=== PATIENT | female | born 1940 | race Caucasian/White ===

== ENCOUNTER 2020-12-15 08:28 | Inpatient (IN) ==
--- NOTE | 2020-11-27 11:52 | PAT Medication Instructions ---
Medication Instructions Date of Service November 27, 2020 Home Medications acetaminophen [Tylenol] 650 mg PO BID PRN aspirin [Aspir-81] 81 mg PO QAM atorvastatin 20 mg PO QPM cholecalciferol (vitamin D3) [Vitamin D3] 10 mcg PO QPM hydrocodone-acetaminophen 1 tab PO Q8H PRN latanoprost (PF) 1 drp OPHTHALMIC (EYE) HS levothyroxine 88 mcg PO QAM losartan 25 mg PO QAM olmesartan 40 mg PO QAM omeprazole 40 mg PO QAM vitamins A,C,Z-klio-pefvge [PreserVision AREDS] 1 cap PO BID ASK your prescriber and surgeon aspirin [Aspir-81] 81 mg PO QAM STOP taking 2 weeks before surgery (or as soon as possible if surgery is within 2 weeks) vitamins A,C,X-inbw-npmaur [PreserVision AREDS] 1 cap PO BID DO NOT take the morning of surgery losartan 25 mg PO QAM olmesartan 40 mg PO QAM Take morning of surgery With a small sip of water, OTHERWISE NOTHING TO EAT OR DRINK AFTER MIDNIGHT: acetaminophen [Tylenol] 650 mg PO BID PRN (okay to take up to 4 hours prior to surgery if needed) hydrocodone-acetaminophen 1 tab PO Q8H PRN(okay to take up to 4 hours prior to surgery if needed) levothyroxine 88 mcg PO QAM omeprazole 40 mg PO QAM Take evening before surgery acetaminophen [Tylenol] 650 mg PO BID PRN (if needed) atorvastatin 20 mg PO QPM cholecalciferol (vitamin D3) [Vitamin D3] 10 mcg PO QPM hydrocodone-acetaminophen 1 tab PO Q8H PRN (if needed) latanoprost (PF) 1 drp OPHTHALMIC (EYE) HS Other Notes If you have any questions please call us at [phone] or [phone] or [phone] or [phone]
--- NOTE | 2020-11-30 12:54 | Anesthesiology Consultation ---
Date of Service November 30, 2020 Assessment & Plan (1) Encounter for pre-operative examination: - Per assessment on 11/30: Travel screen- Lives in [facility]. Travel to [facility] for doctor appts. Uses PPE. No known COVID-19 positive contacts or current COVID-19 related symptoms. Surgeon arranging preop COVID testing (scheduled 12/08; [facility]). Awaiting results. - ASA instructions per surgeon/prescriber - Possible difficult intubation d/t anatomy (hx L5-S1 decompression/fusion: 1 11/10/11: Atraumatic intubation, ETT 7.0 at [facility]) Chart Review Chart Review: Acceptable Risk for Surgery (pending surgeon-ordered PCP gavino jose) and Patient seen in Pre Admission Testing Teaching & Discussion Pre-Anesthesia Teaching/Discussion Notes: Instructed NPO after midnight before surgery,except medications with 15 cc of water. Medication instructions provided according to the PAT guidelines. History Surgery Operation Date: 12/15/20 07:45 Proposed Procedures p L4-L5 Decompression Fusion, L5-S1 Hardware Removal, Spinal Cord Monitoring - Steve Moralez DO Height/Weight Height: 5 ft 2 in Weight: 64.1 kg Allergies Allergy/AdvReac Type Severity Reaction Status Date / Time amoxicillin Allergy Unknown Hives Verified 11/27/20 15:03 oxycodone [From Percocet] Allergy Unknown Hives Verified 11/27/20 15:03 Medications Home Medications Medication Instructions Recorded Confirmed Last Taken acetaminophen [Tylenol] 650 mg PO BID PRN 11/15/20 11/15/20 Unknown aspirin [Aspir-81] 81 mg PO QAM 11/15/20 11/15/20 Unknown atorvastatin 20 mg PO QPM 11/15/20 11/15/20 Unknown cholecalciferol (vitamin D3) 10 mcg PO QPM 11/15/20 11/15/20 Unknown [Vitamin D3] hydrocodone-acetaminophen 1 tab PO Q8H PRN 11/15/20 11/15/20 Unknown latanoprost (PF) 1 drp OPHTHALMIC (EYE) HS 11/15/20 11/15/20 Unknown levothyroxine 88 mcg PO QAM 11/15/20 11/15/20 Unknown losartan 25 mg PO QAM 11/15/20 11/15/20 Unknown omeprazole 40 mg PO QAM 11/15/20 11/15/20 Unknown vitamins A,C,S-kdgq-gnwzfz 1 cap PO BID 11/15/20 11/15/20 Unknown [PreserVision AREDS] Past Medical History Medical History Aortic stenosis Mild aortic stenosis (TRUDY 1.1cm2, MG 12-13.4mmhg) per 11/2019 echo Chronic back pain Chronic kidney disease Stage III, under surveillance by PCP Chronic obstructive pulmonary disease GERD (gastroesophageal reflux disease) Glaucoma Hiatal hernia Hyperlipidemia Hypertension Hypothyroidism Hyperactivity 20 years ago > hypothyroidism s/p radiation Macular degeneration "One eye" Osteoarthritis Prediabetes diet controlled, PCP monitoring Exercise / Class Metabolic Activity III < 4 Walking/Shop/Light housework Past Family History Family History Sister Family history of diabetes mellitus Sister Family history of diabetes mellitus Mother Family history of diabetes mellitus Brother Family history of diabetes mellitus Past Surgical History Surgical History Fusion of spine L5-S1 decompression/fusion: 09/09/12: Atraumatic intubation, ETT 7.0 at [facility] History of adenoidectomy History of appendectomy History of cholecystectomy History of colonoscopy History of esophagogastroduodenoscopy (EGD) History of tonsillectomy Past Anesthesia History No Family Hx of Anesthesia Complications and Other (severe pain with remote back surgery during what sounds like A-line placement (2011; [facility])) History of PONV No Hx of PONV and Hx of Motion Sickness Social History Smoking Status: Current every day smoker Smoking cigarettes per day: 1 PDD (previously heavier use at 2 PPD) Do You Dip or Chew Tobacco: No Hx Alcohol Use: No Hx Substance Use: No Review of Systems Patient denies chest pain, shortness of breath, fever, chills, reflux, cough, wheezing, palpitations. Physical Exam Vital Signs VITALS BP 147/78 P 75 TEMP 98.3 SP02 96%RA RESP 16 PHYSICAL Full neck and c-spine range of motion. Full TMJ range of motion. TMD 2 finger breaths (small chin) Mallampati Score 4 (small oral opening) Dentition: full dentures upper/lower Lungs: clear throughout to auscultation Cardiac: regular rate and rhythm, II/ systolic murmur Spine: normal Carotid arteries: negative bruit Extremities: no edema Testing Laboratory Results 11/30/20 13:44 11/30/20 13:44 PT 10.3 Seconds (9.0-12.0) 11/30/20 13:44 INR 1.0 (0.9-1.1) 11/30/20 13:44 APTT 23.5 Seconds (21.0-31.0) 11/30/20 13:44 Urine Color Yellow 11/30/20 13:44 Urine Appearance Clear (Clear) 11/30/20 13:44 Urine pH 5.0 (4.5-7.5) 11/30/20 13:44 Ur Specific Brady 1.011 (1.000-1.030) 11/30/20 13:44 Urine Protein Negative (Negative) 11/30/20 13:44 Urine Glucose (UA) Negative (Negative) 11/30/20 13:44 Urine Ketones Negative (Negative) 11/30/20 13:44 Urine Nitrite Negative (Negative) 11/30/20 13:44 Ur Leukocyte Esterase Negative (Negative) 11/30/20 13:44 Blood Type B Positive 11/30/20 13:44 Antibody Screen NEGATIVE 11/30/20 13:44 Electrocardiogram Date: 11/30/20 Findings: + NSR @ (75) Chest X-Ray Date: 11/30/20 FINDINGS: The lungs are clear. The heart is normal in size. No pleural effusions. No pneumothorax. Calcifications at the aortic knob are again noted. Prior cholecystectomy. IMPRESSION: No acute process. Echocardiogram Date: 11/08/19 LVEF 65%. No RWMA. Mild aortic stenosis (TRUDY 1.1cm2, MG 12-13.4mmhg). Mild MR.
--- NOTE | 2020-11-30 14:23 | XRay Report ---
XR chest Pre-admission PA/Lat HISTORY: Preop. COMPARISON: Chest 08/24/2012. FINDINGS: The lungs are clear. The heart is normal in size. No pleural effusions. No pneumothorax. Ca lcifications at the aortic knob are again noted. Prior cholecystectomy. IMPRESSION: No acute process. ACT 112: Negative or not required by law. Electronically signed by: Connor Valentin M.D. 11/30/2020 2:22 PM
[2020-11-30 14:59] LABS: Appearance Urine Clear (Clear); Bilirubin Urine Negative (Negative); Blood Urine Negative (Negative); Color Urine Yellow; Glucose Urine UA Negative (Negative); Ketones Urine Negative (Negative); Leukocyte Esterase Urine Negative (Negative); Nitrite Urine Negative (Negative); Protein Urine Negative (Negative); Specific Gravity Urine 1.011 (1.000-1.030); Urobilinogen Urine Negative (Negative)
[2020-11-30 15:03] LABS: Basophils # (auto) 0.02 K/uL (0-0.2); Basophils % (auto) 0.2 %; Eosinophils # (auto) 0.16 K/uL (0-0.5); Eosinophils % (auto) 1.8 %; Hematocrit (blood only) 40.4 % (37-47); Immature Granulocytes # (auto) 0.02 K/uL (0.00-0.02); Immature Granulocytes % (auto) 0.2 %; Lymphocytes # (auto) 2.68 K/uL (1.2-3.4); Lymphocytes % (auto) 29.7 %; Mean Corpuscular Hgb Conc 34.7 g/dL (32-36); Mean Corpuscular Volume 89.4 fL (80-100); Mean Platelet Volume 9.5 fL (7.4-10.4); Monocytes % (auto) 3.3 %; Neutrophils # (auto) 5.83 K/uL (1.4-6.5); Neutrophils % (auto) 64.8 %; Platelet Count 262 K/uL (130-400); RDW Coefficient of Variation 13.4 % (11.5-14.5); RDW Standard Deviation 44.3 fL (36.4-46.3); Red Blood Count 4.52 M/uL (4.2-5.4); White Blood Count 9.01 K/uL (4.8-10.8)
[2020-11-30 15:04] LABS: BUN Creatinine Ratio 11.3 (10-20); Calcium 9.1 mg/dl (8.5-10.1); Creatinine Clr Calc Pharmacy 39.3 ml/min; Est GFR (Non-African American) 54.4; Potassium 3.9 mmol/L (3.5-5.1)
[2020-11-30 15:11] LABS: Partial Thromboplastin Ratio 0.9; Partial Thromboplastin Time 23.5 Seconds (21.0-31.0); Prothrombin Time 10.3 Seconds (9.0-12.0)
--- NOTE | 2020-11-30 16:57 | Electrocardiogram Report ---
Test Reason : Blood Pressure : / mmHG Vent. Rate : 075 BPM Atrial Rate : 075 BPM P-R Int : 178 ms QRS Dur : 098 ms QT Int : 394 ms P-R-T Axes : 078 079 069 degrees QTc Int : 439 ms Normal sinus rhythm Normal ECG When compared with ECG of 24-AUG-2012 14:20, No significant change was found Confirmed by George Escamilla ([id number]) on 11/30/2020 4:56:43 PM Referred By: Steve Moralez Confirmed By:Deandre Escamilla
[~2020-12-15 08:28] MED LIST: CLINDAMYCIN 600 MG/54 ML BAG IV SCH; GABAPENTIN 300 MG CAP PO SCH; LR 15ML/HR IV SCH
[2020-12-15] MEDS ORDERED: NEOSTIGMINE METHYLSULFATE 1 MG/ML 10ML VIAL ONE (09:12)
[2020-12-15] MEDS ORDERED: LIDOCAINE HCL 2% 2 ML VIAL/AMP(20MG/ML) INFIL ONE (09:12)
[2020-12-15] MEDS ORDERED: fentaNYL citrate 100 MCG/2 ML VIAL ONE (09:12)
[2020-12-15] MEDS ORDERED: GLYCOPYRROLATE 0.2 MG/ML VIAL ONE (09:12)
[2020-12-15] MEDS ORDERED: PROPOFOL IV EMULSION 10 MG/ML 20 ML VIAL IV ONE (09:12)
[2020-12-15] MEDS ORDERED: ONDANSETRON INJ 2 MG/ML 2 ML VIAL ONE (09:12)
[2020-12-15] MEDS ORDERED: DEXAMETHASONE SOD INJ 4 MG/ML VIAL ONE (09:12)
--- NOTE | 2020-12-15 09:18 | History & Physical Bridge Note ---
Date of Service December 15, 2020 History & Physical Bridge Note I have examined the patient, reviewed the History & Physical and in the interval since the performance of the History & Physical I have noted the following changes of clinical significance: no changes noted
--- NOTE | 2020-12-15 09:19 | History & Physical Report ---
Date of Service December 15, 2020 Assessment & Plan (1) Neurogenic claudication due to lumbar spinal stenosis: Admission and Anticipated Discharge Date Admission Date: L4-L5 decompression fusion, L5-S1 hardware removal History of Present Illness Chief Complaint: Back and leg pain Primary Care Provider: Chandrika Gu This is an 78-year-old female that has some chronic persistent back and leg pain after failing course of nonoperative care is here for surgical invention. Allergies Allergy/AdvReac Type Severity Reaction Status Date / Time amoxicillin Allergy Unknown Hives Verified 11/27/20 15:03 oxycodone [From Percocet] Allergy Unknown Hives Verified 11/27/20 15:03 Home Medications Medication Instructions Recorded Confirmed Type acetaminophen [Tylenol] 650 mg PO BID PRN 11/15/20 11/15/20 History aspirin [Aspir-81] 81 mg PO QAM 11/15/20 11/15/20 History atorvastatin 20 mg PO QPM 11/15/20 11/15/20 History cholecalciferol (vitamin D3) 10 mcg PO QPM 11/15/20 11/15/20 History [Vitamin D3] hydrocodone-acetaminophen 1 tab PO Q8H PRN 11/15/20 11/15/20 History latanoprost (PF) 1 drp OPHTHALMIC (EYE) HS 11/15/20 11/15/20 History levothyroxine 88 mcg PO QAM 11/15/20 11/15/20 History losartan 25 mg PO QAM 11/15/20 11/15/20 History omeprazole 40 mg PO QAM 11/15/20 11/15/20 History vitamins A,C,W-fqqn-eavcto 1 cap PO BID 11/15/20 11/15/20 History [PreserVision AREDS] Past Med/Surg History Medical History Aortic stenosis Mild aortic stenosis (TRUDY 1.1cm2, MG 12-13.4mmhg) per 11/2019 echo Chronic back pain Chronic kidney disease Stage III, under surveillance by PCP Chronic obstructive pulmonary disease GERD (gastroesophageal reflux disease) Glaucoma Hiatal hernia Hyperlipidemia Hypertension Hypothyroidism Hyperactivity 20 years ago > hypothyroidism s/p radiation Macular degeneration "One eye" Osteoarthritis Prediabetes diet controlled, PCP monitoring Surgical History Fusion of spine L5-S1 decompression/fusion: 09/09/12: Atraumatic intubation, ETT 7.0 at [facility] History of adenoidectomy History of appendectomy History of cholecystectomy History of colonoscopy History of esophagogastroduodenoscopy (EGD) History of tonsillectomy Family History Sister Family history of diabetes mellitus Sister Family history of diabetes mellitus Mother Family history of diabetes mellitus Brother Family history of diabetes mellitus Social History Smoking Status: Current every day smoker Cigarettes Per Day: 1 PDD (previously heavier use at 2 PPD); Second Hand Exposure: No; Do You Dip or Chew Tobacco: No; Hx Alcohol Use: No Hx Substance Use: No Preferred Language: Turkmen Communication Ability: Effective Right Of Way Agent Required: No Beliefs That Will Affect Care: None Current Living Situation: Alone Other Information That Helps Us Care for You: No Feels Safe at Home: Yes Safety Concerns: Feels Safe At This Time Assistive Devices: Cane, Denture - Upper, Denture - Lower and Glasses Assistive Devices Comment: CANE PRN Physical Exam Physical Exam: Patient is alert and oriented Heart regular rhythm Lungs clear to auscultation
[2020-12-15] MEDS ORDERED: BUPIVACAINE/EPINEPHRINE 0.5% MPF 1:200,000 30 ML VIAL ONE (09:45)
[2020-12-15] MEDS ORDERED: BACITRACIN INJ 50,000 UNIT VIAL ONE (09:46)
[2020-12-15] MEDS ORDERED: ONDANSETRON INJ 2 MG/ML 2 ML VIAL IV PRN ×2 (09:53→13:11)
[2020-12-15] MEDS ORDERED: ePHEDrine sulfate 50 MG/ML AMP IV PRN (09:53)
[2020-12-15] MEDS ORDERED: ATROPINE SULFATE 0.1 MG/ML 10ML SYR IV PRN (09:53)
[2020-12-15] MEDS ORDERED: HYDROmorphone INJ 2 MG/ML SYR/VIAL IV PRN (09:53)
[2020-12-15] MEDS ORDERED: PHENYLEPHRINE 100MCG/ML 5ML SYR ONE (11:13)
[2020-12-15] MEDS ORDERED: FLOSEAL HEMOSTATIC MATRIX 10ML TOP ONE (11:44)
--- NOTE | 2020-12-15 11:48 | Operative Report ---
Post Operative Report Pre & Post Diagnosis Operation Date: 12/15/20 10:05 Pre-Op Diagnosis: Spinal Stenosis, Lumbar Region with Neurogenic Claudication Post-Op Diagnosis: Spinal Stenosis, Lumbar Region with Neurogenic Claudication I identified the patient and participated in the time-out.: Yes Procedure Operation Date: 12/15/20 10:05 Actual Procedures #1 Removal of posterior instrumentation L5-S1 peer #2 exploration of fusion L5- S1 peer #3 lumbar decompression with bilateral medial facetectomies and foraminotomies L3-4 and L4-5. #4 posterior spinal fusion L4-5 per #5 placement of posterior instrumentation L4-5 L5-S1 using meta Crea. #6 interbody fusion L4-L5. #7 placement peek cage 10 x 22 mm at L4-5. #8 placement of locally harvested morselized autograft in the posterior gutters. #9 placement infuse collagen sponge, master graft in the posterior lateral gutters and I factor in the interbody space. Surgeon Steve Moralez, Content Producer Emeka Rashid Estimated Blood Loss 100 Findings Consistent with Post-Op Diagnosis Specimens None Indications This is an 80-year-old female well-known to me the presents with above-mentioned diagnosis after failing course of nonoperative care is here for surgical invention. Description of Procedure Patient was met with identified informed consent obtained. Patient was then taken to the operative suite underwent an patient placed in a prone position the [place] table top Luisito frame. All bony prominences well-padded eyes inspected to ensure no external pressure placed upon the. This point the lumbar spine is prepped and draped in a sterile fashion. Sharp dissection with assistance of Bovie cautery was performed down to and exposing the lamina and transverse processes of L4 and the instrumentation at L5 and S1 levels bilaterally. I then proceeded to move the hardware at L5-S1 bilaterally explored the fusion mass noting it to be mature. Then performed a complete laminectomy of L4 partial negative L3 including bilateral medial facetectomies and foraminotomies addressing severe spinal stenosis. Pedicle screws were then placed in L4 and L5 and S1 levels bilaterally with assistance of fluoroscopy and by way of a transforaminal approach on the right a complete discectomy was performed endplates curetted to subcortical being bone and a 10 x 22 mm peek cage filled with I factor bone graft tapped in position. The rods were then placed locked in position bilaterally. The transverse processes of L4-L5 were then burred to subcortical any bone. Infuse collagen sponge master graft local autograft was placed in the posterior gutters. 15 round HÉCTOR drain inserted. The incision was then closed with 1 Vicryl the fascia 2-0 Vicryl subcutaneously and 4 Monocryl for final skin closure. Steri-Strip sterile dressings placed. Patient will continue to PACU stable condition. Please note spinal cord monitoring was utilized at the procedure no changes noted. Lastly Emeka Rashid was present at the entire surgery involved the patient positioning complex portions of the surgery and final skin closure. I attest to the content of the Intraoperative Record and any orders documented therein. Any exceptions are noted below.
--- NOTE | 2020-12-15 12:10 | Fluoroscopy Report ---
FL lumbar spine 2-3V CLINICAL HISTORY: L4-L5 DECOMPRESSION AND FUSION L5-S1 HW REMOVAL COMPARISON STUDY: None. FLUOROSCOPY TIME: 11 seconds. FINDINGS: 2 fluoroscopic spot images of the lumbar spine demonstrate posterior decompression and fusi on from L4 through S1 with pedicle screws and rods. The hardware appears intact. IMPRESSION: Fluoroscopy provided for posterior decompression and fusion within the lower lumbar spine . ACT 112: Negative or not required by law. Electronically signed by: Connor Valentin M.D. 12/15/2020 12:09 PM
[2020-12-15] MEDS: fentaNYL citrate 100 MCG/2 ML VIAL IV PRN ×2 (12:32→12:44)
[2020-12-15] MEDS ORDERED: HYDROmorphone INJ 1 MG/ML SYRINGE IV PRN (13:11)
[2020-12-15] MEDS ORDERED: SOD PHOSPHATE/SOD BIPHOSPHATE ENEMA 132 ML BTL PR PRN (13:11)
[2020-12-15] MEDS ORDERED: DO NOT ADMINISTER PNEUMOCOCCAL VACCINE PRN (13:11)
[2020-12-15] MEDS ORDERED: diphenhydrAMINE Capsule 25 MG CAP PO PRN (13:11)
[2020-12-15] MEDS ORDERED: LORazepam 0.5 MG TAB PO PRN (13:11)
[2020-12-15] MEDS ORDERED: ONDANSETRON 4 MG OD TAB PO PRN (13:11)
[2020-12-15] MEDS ORDERED: LORazepam 0.5 MG/1 ML VIAL IV PRN (13:11)
[2020-12-15] MEDS ORDERED: ACETAMINOPHEN 500 MG TAB PO PRN (13:11)
[2020-12-15] MEDS ORDERED: DO NOT ADMINISTER FLU VACCINE PRN (13:11)
[2020-12-15] MEDS ORDERED: NALOXONE HCL 0.4 MG/1 ML VIAL/CARP IV PRN (13:11)
[2020-12-15] MEDS ORDERED: METOCLOPRAMIDE HCL INJ 5 MG/ML 2 ML VIAL IV PRN (13:11)
[2020-12-15] MEDS ORDERED: PROMETHAZINE HCL 12.5 MG in SODIUM CHLORIDE 0.9% 50 ML IV PRN (13:11)
[2020-12-15] MEDS ORDERED: HYDROCODONE/ACETAMINOPHEN 7.5/325MG TAB PO PRN (13:11)
[2020-12-15] MEDS ORDERED: ACETAMINOPHEN 1,000 MG/100 ML VIAL IV PRN (13:11)
[2020-12-15] MEDS ORDERED: HYDROmorphone INJ 0.5 MG/0.5 ML SYR IV PRN (13:11)
[2020-12-15] MEDS ORDERED: FAMOTIDINE 20 MG TAB PO PRN (13:11)
[2020-12-15] MEDS ORDERED: MAGNESIUM HYDROXIDE SUSP 30 ML UDC PO PRN (13:11)
[2020-12-15] MEDS ORDERED: ALUMINUM/MAGNESIUM SUSP 30 ML UDC PO PRN (13:11)
[2020-12-15] MEDS ORDERED: hydrOXYzine HCl 25 MG TAB PO PRN (13:11)
--- NOTE | 2020-12-15 14:15 | Consultation ---
Date of Consultation December 15, 2020 Assessment & Plan (1) Status post lumbar surgery: Post op day# 0 S/P Removal hardware L5-S1, decompression & fusion L3-L5 by Dr Moralez EBL#100ml -pain management per ortho -wound management per ortho -PT/OT as appropriate -DVT prophylaxis per ortho -incentive spirometry -monitor H&H for acute blood loss anemia; pre-op Hgb: 14 (2) Hypertension: BP: 150/65 -Monitor BP, control pain -Continue losartan (3) Chronic kidney disease: Baseline Cr ~0.9 -Monitor renal functions, avoid nephrotoxic agents when possible (4) Hypothyroidism: H/O Hyperthyroidism s/p radiation -Continue levothyroxine (5) Prediabetes: Diet controlled A1c: 6.6 on 10/2020 -Diabetic diet when pt advances from liquids -Monitor BSGs, Novolog sliding scale per protocol (6) Hyperlipidemia: -Continue statin DVT Prophylaxis -SCDs per ortho spine Disposition per primary service Follows with Chandrika Gu PA-C, D[facility] for routine care Pt was seen and care coordinated with Dr Mcclellan. See addendum Thank you for this consultation. We will follow the patient with you during their hospital stay. You can reach a member of the [facility] Hospitalist Team 28/04 via pager @ [phone]. Supervising Physician Co-Signing Physician Notes I have seen and examined the patient and have discussed the case with the provider above. I agree with the assessment and plan as stated. 80 yo F s/p lum bar decompression and fusion today. She is doing well post op aside from a sore throat. Lozenges were ordered. Physical exam as above. Thank you for this consultation and we will follow her throughout this hospitalization. DO [facility] Hospitalist History of Present Illness Requesting Physician: Dr Moralez Reason for Consultation: Post op medical management Attending Physician: Steve Moralez DO History of Present Illness Pt is 80 y/o F with PMH HTN, HLD, CKD III, diet controlled DM II, hypothyroidism, GERD seen in medical consultation s/p removal hardware L5-S1 and decompression & fusion L3-L5 today by Dr Moralez. Post op pt reports feels groggy but thinks that is improving since coming to the medical floor. Reports mild back pain but is nervous to move as doesn't want to cause any further discomfort. Denies extremity pain or paresthesias. Drinking tea and tolerating well. Denies N/V, SOB, CP, FINCH, dizziness. Had BM yesterday morning. Currently with Mosher cath in place. Denies fever/chills, diaphoresis, dizziness, vision changes, neck pain, palpitations, cough, sore throat, choking, rhinorrhea, abdominal pain, extremity edema, rashes, urinary symptoms. Allergies Allergy/AdvReac Type Severity Reaction Status Date / Time amoxicillin Allergy Unknown Hives Verified 12/15/20 09:19 oxycodone [From Percocet] Allergy Unknown Hives Verified 12/15/20 09:19 Home Medications Medication Instructions Recorded Confirmed Type acetaminophen [Tylenol] 650 mg PO BID PRN 11/15/20 12/15/20 History aspirin [Aspir-81] 81 mg PO QAM 11/15/20 12/15/20 History atorvastatin 20 mg PO QPM 11/15/20 12/15/20 History cholecalciferol (vitamin D3) 10 mcg PO QPM 11/15/20 12/15/20 History [Vitamin D3] hydrocodone-acetaminophen 1 tab PO Q8H PRN 11/15/20 12/15/20 History latanoprost (PF) 1 drp OPHTHALMIC (EYE) HS 11/15/20 12/15/20 History losartan 25 mg PO QAM 11/15/20 12/15/20 History omeprazole 40 mg PO QAM 11/15/20 12/15/20 History vitamins A,C,D-uzra-bvrqvp 1 cap PO BID 11/15/20 12/15/20 History [PreserVision AREDS] levothyroxine 88 mcg PO QAM 12/15/20 12/15/20 History Patient History Medical History (Updated 12/15/20 @ 14:15 by Jessica Marquez PA-C) Aortic stenosis Mild aortic stenosis (TRUDY 1.1cm2, MG 12-13.4mmhg) per 11/2019 echo Chronic back pain Chronic kidney disease Stage III, under surveillance by PCP Chronic obstructive pulmonary disease GERD (gastroesophageal reflux disease) Glaucoma Hiatal hernia Hyperlipidemia Hypertension Hypothyroidism Hyperactivity 20 years ago > hypothyroidism s/p radiation Macular degeneration "One eye" Osteoarthritis Prediabetes diet controlled, PCP monitoring Surgical History (Updated 12/15/20 @ 14:15 by Jessica Marquez PA-C) Fusion of spine L5-S1 decompression/fusion: 09/09/12: Atraumatic intubation, ETT 7.0 at [facility] [place] History of adenoidectomy History of appendectomy History of cholecystectomy History of colonoscopy History of esophagogastroduodenoscopy (EGD) History of tonsillectomy Family History Sister Family history of diabetes mellitus Sister Family history of diabetes mellitus Mother Family history of diabetes mellitus Brother Family history of diabetes mellitus Social History Smoking Status: Current every day smoker Cigarettes Per Day: 1 PDD (previously heavier use at 2 PPD); Second Hand Exposure: No; Do You Dip or Chew Tobacco: No; Hx Alcohol Use: No Hx Substance Use: No Preferred Language: [place] Korean Communication Ability: Effective Inspecting Machine Adjuster Required: No Beliefs That Will Affect Care: None marital status: Single Current Living Situation: Alone Other Information That Helps Us Care for You: No Feels Safe at Home: Yes Safety Concerns: Feels Safe At This Time Assistive Devices: Cane, Denture - Upper, Denture - Lower and Glasses Assistive Devices Comment: CANE PRN Review of Systems Review of Systems: All systems reviewed & are unremarkable except as noted in HPI & below Physical Exam Physical Exam: General: no acute distress, WDWN elderly female Head: normocephalic, atraumatic Eyes: EOM's intact, conjunctiva non-injected, anicteric ENT: normal inspection external ears, nose, mucous membranes mildly dry Neck: supple, trachea midline Lungs: clear, no respiratory distress, no wheezing/rhonchi/rales CV: RRR, +murmur, no pretibial edema Abd: normal BS, soft, non-tender Back: surgical dressing in place Ext: no cyanosis, no calf tenderness; pedal pushes and pulls intact bilaterally, sensation to light touch intact, distal pulses intact Neuro: A&O x 3, no focal deficits noted, normal affect Skin: warm, dry Results & Data ([facility]) Vital Signs (Past 12 Hours) Vital Signs Temp Pulse Pulse Resp BP BP Pulse Ox 12/15/20 13:43 36.5 C 73 16 168/67 H 92 12/15/20 13:12 36.5 C 71 16 159/63 H 96 12/15/20 12:50 71 14 153/53 H 98 12/15/20 12:40 36.3 C L 75 18 173/60 H 97 12/15/20 12:30 77 18 181/69 H 99 12/15/20 12:20 75 16 164/69 H 100 12/15/20 12:10 36.0 C L 81 16 176/74 H 97 12/15/20 09:30 36.8 C 90 20 181/67 H 95
[2020-12-15] MEDS ORDERED: CARBOHYDRATES FOR HYPOGLYCEMIA PO PRN (14:22)
[2020-12-15] MEDS ORDERED: DEXTROSE 50% 50 ML SYRINGE IV PRN (14:22)
[2020-12-15] MEDS ORDERED: GLUCOSE 40% GEL 15 GM TUBE PO PRN (14:22)
[2020-12-15] MEDS ORDERED: GLUCAGON FOR INJ 1 MG VIAL SQ PRN (14:22)
[2020-12-15] MEDS ORDERED: GLUCOSE 10 TABS/TUBE PO PRN (14:22)
--- NOTE | 2020-12-15 15:11 | Anesthesiology Progress Note ---
Date of Service December 15, 2020 Anesthesia Post Procedure Vital Signs Vital Signs: Temp Pulse Pulse Resp BP BP Pulse Ox 12/15/20 14:00 36.2 C L 75 16 150/65 H 92 12/15/20 13:43 36.5 C 73 16 168/67 H 92 12/15/20 13:12 36.5 C 71 16 159/63 H 96 12/15/20 12:50 71 14 153/53 H 98 12/15/20 12:40 36.3 C L 75 18 173/60 H 97 12/15/20 12:30 77 18 181/69 H 99 12/15/20 12:20 75 16 164/69 H 100 12/15/20 12:10 36.0 C L 81 16 176/74 H 97 12/15/20 09:30 36.8 C 90 20 181/67 H 95 Pain Intensity Back: Pain Intensity: 5 Transfer of Care Handoff Completed per policy Notes Mental Status: alert / awake / arousable and participated in evaluation Patient Amnestic to Procedure: Yes Nausea / Vomiting: adequately controlled Pain: adequately controlled Airway Patency, RR, SpO2: stable & adequate BP & HR: stable & adequate Hydration State: stable & adequate Anesthetic Complications: no major complications apparent
[2020-12-15] MEDS ORDERED: COUGH DROP (SUGAR FREE) LOZ 24 LOZ/1 BOX BUCCAL STA (16:41)
[2020-12-15] MEDS ORDERED: COUGH DROP (SUGAR FREE) LOZ 24 LOZ/1 BOX BUCCAL PRN (16:41)
[2020-12-15] MEDS: SODIUM CHLORIDE 0.9% 1000ML 1,000 ML IV SCH (17:53)
[2020-12-15] MEDS: CLINDAMYCIN 600 MG in DEXTROSE 5% 50 ML IV SCH (17:53)
[2020-12-15] MEDS: INSULIN ASPART 100 UNITS/ML 3 ML PEN SC SCH ×2 (17:55→20:29)
[2020-12-15] MEDS: ATORVASTATIN 20 MG TAB PO SCH (20:28)
[2020-12-15] MEDS: CHOLECALCIFEROL 1,000 UNITS 25 MCG TAB PO SCH (20:28)
[2020-12-15] MEDS: DOCUSATE SODIUM/SENNA 50/8.6MG TAB PO SCH (20:28)
[2020-12-15] MEDS: LATANOPROST 0.005% OP SOLN 2.5 ML BTL OP SCH (20:29)
[2020-12-16] MEDS: traMADol HCL 50 MG TABLET PO PRN ×3 (01:21→17:14)
[2020-12-16] MEDS: CLINDAMYCIN 600 MG in DEXTROSE 5% 50 ML IV SCH (01:24)
[2020-12-16] MEDS: SODIUM CHLORIDE 0.9% 1000ML 1,000 ML IV SCH (01:24)
[2020-12-16] MEDS: POLYETHYLENE (MIRALAX) 17 GM PACK PO SCH ×3 (05:42→17:15)
[2020-12-16] MEDS: LEVOTHYROXINE SODIUM 88 MCG TABLET PO SCH (05:42)
[2020-12-16 06:02] LABS: Basophils # (auto) 0.01 K/uL (0-0.2); Basophils % (auto) 0.1 %; Eosinophils # (auto) 0.05 K/uL (0-0.5); Eosinophils % (auto) 0.5 %; Hematocrit (blood only) 33.4 % (37-47); Hemoglobin 11.3 g/dL (12.0-16.0); Immature Granulocytes # (auto) 0.02 K/uL (0.00-0.02); Immature Granulocytes % (auto) 0.2 %; Lymphocytes # (auto) 1.94 K/uL (1.2-3.4); Lymphocytes % (auto) 18.1 %; Mean Corpuscular Hemoglobin 29.7 pg (25-34); Mean Corpuscular Hgb Conc 33.8 g/dL (32-36); Mean Corpuscular Volume 87.9 fL (80-100); Mean Platelet Volume 9.2 fL (7.4-10.4); Monocytes % (auto) 5.6 %; Neutrophils # (auto) 8.07 K/uL (1.4-6.5); Neutrophils % (auto) 75.5 %; Platelet Count 214 K/uL (130-400); RDW Coefficient of Variation 13.3 % (11.5-14.5); RDW Standard Deviation 42.7 fL (36.4-46.3); White Blood Count 10.69 K/uL (4.8-10.8)
[2020-12-16 06:30] LABS: BUN Creatinine Ratio 9.8 (10-20); Calcium 8.5 mg/dl (8.5-10.1); Creatinine Clr Calc Pharmacy 40.7 ml/min; Est GFR (African American) 66.3; Est GFR (Non-African American) 57.2; Potassium 3.6 mmol/L (3.5-5.1)
--- NOTE | 2020-12-16 08:22 | Ultrasound Report ---
US venous doppler LE RT HISTORY: 80 years-old Female RLE pain acute pain and swelling of the right lower extremity COMPARISON: None TECHNIQUE: Multiple real-time sonographic images of the right lower extremity deep venous structures were obtained assessing grayscale appearance, color and spectral flow FINDINGS: Normal flow, compressibility, phasicity and augmentation of the right lower extremity deep venous str uctures. IMPRESSION: No sonographic evidence of deep venous thrombosis. ACT 112: Negative or not required by law. The above report was generated using voice recognition software. It may contain grammatical, syntax o r spelling errors. Electronically signed by: Charan Lindsay M.D. 12/16/2020 8:21 AM
[2020-12-16] MEDS: PANTOprazole 40 MG TAB PO SCH (09:34)
[2020-12-16] MEDS: LOSARTAN POTASSIUM 25 MG TAB PO SCH (09:35)
[2020-12-16] MEDS: ASPIRIN 81 MG ECTAB PO SCH (09:35)
[2020-12-16] MEDS: CEROVITE ADV FORMULA TAB PO SCH (09:35)
--- NOTE | 2020-12-16 10:29 | Orthopedic Progress Note ---
Date of Service December 16, 2020 Assessment & Plan (1) Neurogenic claudication due to lumbar spinal stenosis: Admission and Anticipated Discharge Date Admission Date: December 15, 2020 This time continue physical therapy monitor HÉCTOR output anticipate discharge home tomorrow. Subjective Back pain controlled leg pain improved. Physical Exam Physical Exam: Patient is in the chair at the bedside. She has good strength testing. Appears comfortable. Results & Data ([facility]) Vital Signs (Past 12 Hours) Vital Signs Temp Pulse Resp BP Pulse Ox 12/16/20 07:14 36.6 C 75 16 126/61 93 12/16/20 02:51 36.5 C 73 20 130/66 94
[2020-12-16] MEDS: INSULIN ASPART 100 UNITS/ML 3 ML PEN SC SCH ×4 (10:59→20:37)
--- NOTE | 2020-12-16 17:08 | Hospitalist Progress Note ---
Date of Service December 16, 2020 Assessment & Plan (1) Status post lumbar surgery: Post op day# 1 S/P Removal hardware L5-S1, decompression & fusion L3-L5 by Dr Naomy GARCIA#100ml -pain management per ortho -wound management per ortho -PT/OT as appropriate -DVT prophylaxis per ortho -incentive spirometry -monitor H&H for acute blood loss anemia; pre-op Hgb: 14 (2) Hypertension: At goal, continue losartan per home regimen. (3) Chronic kidney disease: Baseline Cr ~0.9 -Monitor renal functions, avoid nephrotoxic agents when possible (4) Hypothyroidism: H/O Hyperthyroidism s/p radiation, Continue levothyroxine per home regimen. (5) DMII (diabetes mellitus, type 2): Hemoglobin A1c 6.6 on 10/23/2020 as outpatient. This technically classifies her as diabetic. She is a diet-controlled diabetic and is currently on a type 2 diabetes diet in the hospital. Blood sugar levels have been within range and she has not needed any insulin coverage during this hospitalization. Continue to monitor blood sugar levels to ensure good wound healing and euglycemia. (6) DVT prophylaxis: SCD/ambulation per orthopedics Full code Disposition-to home when okay per Ortho Thank you for this consultation. Emelyn Mcclellan DO [facility] Hospitalist Admission and Anticipated Discharge Date Admission Date: December 15, 2020 Subjective 80-year-old female status post lumbar surgery on 12/15, postoperative day 1. She is reporting significant pain in her incisional area. She is otherwise doing well and eating food. She is looking forward to possibly going home tomorrow. She otherwise denies any chest pain or shortness of breath. Review of Systems Review of Systems: All systems reviewed & are unremarkable except as noted in Subjective Physical Exam Physical Exam: CONSTITUTIONAL: WNWD, vitals as above, generally well- appearing EYES: normal conjunctivae, no scleral icterus ENT: external ear and nose normal RESPIRATORY: clear to auscultation bilaterally, no crackles, rales or wheezes, normal respiratory effort CARDIOVASCULAR: regular rate and rhythm, S1 and 2 heard without murmurs, gallops or rubs, no JVD, no peripheral edema GASTROINTESTINAL: soft, nontender, nondistended, no guarding MUSCULOSKELETAL: strength 5/5 throughout, head is normocephalic and atraumatic SKIN: warm and dry NEUROLOGIC: CN 2-12 grossly intact, no gross focal deficits. PSYCHIATRIC: alert cooperative and oriented to person, place and time. Results & Data Results & Data ([facility]) Vital Signs (Past 12 Hours) Vital Signs Temp Pulse Resp BP Pulse Ox 12/16/20 15:00 36.5 C 82 16 131/68 92 12/16/20 07:14 36.6 C 75 16 126/61 93 Laboratory Results Short CBC 12/16/20 Range/Units 05:34 WBC 10.69 (4.8-10.8) K/uL Hgb 11.3 L (12.0-16.0) g/dL Hct 33.4 L (37-47) % Plt Count 214 (130-400) K/uL BMP 12/16/20 05:34 Sodium 137 Potassium 3.6 Chloride 104 Carbon Dioxide 27 BUN 9 Creatinine 0.93 Glucose 166 H Calcium 8.5 Medications Administered Current Inpatient Medications Acetaminophen (Acetaminophen 500 Mg Tab) 1,000 mg PO Q8H PRN PRN Reason: MILD Pain Scale 1,2,3 & Pre PT Stop: 01/14/21 13:10 Hydrocodone Bitart/Acetaminophen (Hydrocodone/Acetaminophen 7.5/325mg Tab) 1 - 2 tab PO Q4H PRN PRN Reason: Pain & Pre PT Stop: 12/29/20 13:10 Al Hydrox/Mg Hydrox/Simethicone (Aluminum/Magnesium Susp 30 Ml Udc) 30 ml PO Q6H PRN PRN Reason: Dyspepsia Stop: 01/14/21 13:10 Aspirin (Aspirin 81 Mg Ectab) 81 mg PO QAM [facility] Stop: 01/15/21 08:59 Last Admin: 12/16/20 09:35 Dose: 81 mg Documented by: Atorvastatin Calcium (Atorvastatin 20 Mg Tab) 20 mg PO QPM [facility] Stop: 01/14/21 20:59 Last Admin: 12/15/20 20:28 Dose: 20 mg Documented by: Bisacodyl (Bisacodyl 10 Mg Supp) 10 mg [place] DAILY PRN PRN Reason: Constipation Stop: 01/16/21 11:49 Dextrose (Dextrose 50% 50 Ml Syringe) 25 - 50 ml IV UD PRN; Protocol PRN Reason: Hypoglycemia Protocol Stop: 01/14/21 14:21 Diphenhydramine HCl (Diphenhydramine Capsule 25 Mg Cap) 25 mg PO Q6H PRN PRN Reason: Allergic Rhinitis/Insomnia Stop: 01/14/21 13:10 Famotidine (Famotidine 20 Mg Tab) 20 mg PO Q12H PRN PRN Reason: Dyspepsia Stop: 01/14/21 13:10 Glucagon (Glucagon For Inj 1 Mg Vial) 1 mg SQ UD PRN; Protocol PRN Reason: Hypoglycemia Protocol Stop: 01/14/21 14:21 Glucose (Glucose 10 Tabs/Tube) 4 - 8 tabs PO UD PRN; Protocol PRN Reason: Hypoglycemia Protocol Stop: 01/14/21 14:21 Glucose (Glucose 40% Gel 15 Gm Tube) 15 - 30 gm PO UD PRN; Protocol PRN Reason: Hypoglycemia Protocol Stop: 01/14/21 14:21 Hydromorphone HCl (Hydromorphone Inj 0.5 Mg/0.5 Ml Syr) 0.5 mg IV Q3H PRN PRN Reason: MOD pain (scale 4-6) & Pre PT Stop: 12/29/20 13:10 Hydromorphone HCl (Hydromorphone Inj 1 Mg/Ml Syringe) 1 mg IV Q3H PRN PRN Reason: severe pain (scale 7-10) Stop: 12/29/20 13:10 Hydroxyzine HCl (Hydroxyzine Hcl 25 Mg Tab) 25 mg PO Q8H PRN PRN Reason: Anxiety Stop: 01/14/21 13:10 Acetaminophen (Ofirmev) 1,000 mg in 100 mls @ 400 mls/hr IV Q8H PRN PRN Reason: Pain Rating 1-3 & Pre PT Stop: 12/18/20 13:10 Promethazine HCl 12.5 mg/ (Sodium Chloride) 50.5 mls @ 202 mls/hr IV Q6H PRN PRN Reason: Nausea &/or Vomiting Stop: 01/14/21 13:10 Lorazepam (Ativan) 0.5 mg in 1 mls @ 1 mls/min IV Q8H PRN PRN Reason: Sedation/Anxiety Stop: 01/14/21 13:10 Dexamethasone Sodium Phosphate (6 mg/ Syringe) 1.5 mls @ 1 mls/min IV DAILY [facility] Stop: 01/16/21 08:59 Influenza Virus Vaccine Quadrival (Do Not Administer Flu Vaccine) 1 ea N/A PRN PRN PRN Reason: Notification Stop: 01/14/21 13:10 Insulin Aspart (Insulin Aspart 100 Units/Ml 3 Ml Pen) 0 units SC ACHS [facility] Stop: 01/14/21 16:29 Last Admin: 12/16/20 13:30 Dose: Not Given Documented by: Latanoprost (Latanoprost 0.005% Op Soln 2.5 Ml Btl) 1 drops OP HS [facility] Stop: 01/14/21 20:59 Last Admin: 12/15/20 20:29 Dose: 1 drops Documented by: Levothyroxine Sodium (Levothyroxine Sodium 88 Mcg Tablet) 88 mcg PO DAILYBB [facility] Stop: 01/15/21 06:29 Last Admin: 12/16/20 05:42 Dose: 88 mcg Documented by: Lorazepam (Lorazepam 0.5 Mg Tab) 0.5 mg PO Q8H PRN PRN Reason: sedation/anxiety Stop: 01/14/21 13:10 Losartan Potassium (Losartan Potassium 25 Mg Tab) 25 mg PO QAM [facility] Stop: 01/15/21 08:59 Last Admin: 12/16/20 09:35 Dose: 25 mg Documented by: Magnesium Hydroxide (Magnesium Hydroxide Susp 30 Ml Udc) 30 ml PO Q24H PRN PRN Reason: Constipation Stop: 01/14/21 13:10 Menthol (Cough Drop (Sugar Free) Caro 24 Caro/1 Box) 1 caro BUCCAL Q2H PRN PRN Reason: Sore Throat Stop: 01/14/21 16:40 Metoclopramide HCl (Metoclopramide Hcl Inj 5 Mg/Ml 2 Ml Vial) 10 mg IV Q6H PRN PRN Reason: Nausea &/or Vomiting Stop: 01/14/21 13:10 Miscellaneous (Carbohydrates For Hypoglycemia ) 15 - 30 gm PO UD PRN PRN Reason: Hypoglycemia Protocol Stop: 01/14/21 14:21 Multivitamins/Minerals (Cerovite Adv Formula Tab) 1 tab PO DAILY [facility]; Protocol Stop: 01/15/21 08:59 Last Admin: 12/16/20 09:35 Dose: 1 tab Documented by: Naloxone HCl (Naloxone Hcl 0.4 Mg/1 Ml Vial/Carp) 0.1 mg IV Q5M PRN PRN Reason: Oversedation/respiratory dep Stop: 01/14/21 13:10 Ondansetron HCl (Ondansetron Inj 2 Mg/Ml 2 Ml Vial) 4 mg IV Q6H PRN PRN Reason: Nausea &/or Vomiting Stop: 01/14/21 13:10 Ondansetron HCl (Ondansetron 4 Mg Od Tab) 4 mg PO Q6H PRN PRN Reason: Nausea Stop: 01/14/21 13:10 Pantoprazole Sodium (Pantoprazole 40 Mg Tab) [facility] Protocol Stop: 01/15/21 08:59 Last Admin: 12/16/20 09:34 Dose: 40 mg Documented by: Pneumococcal Polyvalent Vaccine (Do Not Administer Pneumococcal Vaccine) 1 ea N/A PRN PRN PRN Reason: Notification Stop: 01/14/21 13:10 Polyethylene Glycol (Polyethylene (Miralax) 17 Gm Pack) 17 gm PO Q6 [facility] Stop: 01/15/21 05:59 Last Admin: 12/16/20 12:09 Dose: 17 gm Documented by: Senna/Docusate Sodium (Docusate Sodium/Senna 50/8.6mg Tab) 2 tab PO HS [facility] Stop: 01/14/21 20:59 Last Admin: 12/15/20 20:28 Dose: 2 tab Documented by: Sodium Biphosphate/Sodium Phosphate (Sod Phosphate/Sod Biphosphate Enema 132 Ml Btl) 132 ml MI ONE PRN PRN Reason: Constipation Stop: 01/14/21 13:10 Tramadol HCl (Tramadol Hcl 50 Mg Tablet) 50 - 100 mg PO Q4H PRN PRN Reason: Moderate-Severe pain & Pre PT Stop: 01/14/21 13:10 Last Admin: 12/16/20 09:41 Dose: 100 mg Documented by: Vitamin D (Cholecalciferol 1,000 Units 25 Mcg Tab) 1,000 units PO QPM [facility] Stop: 01/14/21 20:59 Last Admin: 12/15/20 20:28 Dose: 1,000 units Documented by:
[2020-12-16] MEDS: ATORVASTATIN 20 MG TAB PO SCH (20:34)
[2020-12-16] MEDS: CHOLECALCIFEROL 1,000 UNITS 25 MCG TAB PO SCH (20:35)
[2020-12-16] MEDS: DOCUSATE SODIUM/SENNA 50/8.6MG TAB PO SCH (20:35)
[2020-12-16] MEDS: LATANOPROST 0.005% OP SOLN 2.5 ML BTL OP SCH (20:37)
[2020-12-17] MEDS: POLYETHYLENE (MIRALAX) 17 GM PACK PO SCH ×5 (00:25→21:32)
[2020-12-17] MEDS ORDERED: OPTIRAY 320 100ml IV ONE (05:37)
[2020-12-17] MEDS: LEVOTHYROXINE SODIUM 88 MCG TABLET PO SCH (05:48)
--- NOTE | 2020-12-17 07:08 | Communication Note ---
Date of Service: December 17, 2020 Notified by RN of patient abdominal pain complaints with abdominal distention and nausea symptoms. Last BM was 3 days ago as per RN. CT abdomen pelvis initial read: Possible partial or low-grade colonic obstruction at the splenic flexure. AP Possible bowel obstruction Bowel rest, IVF General Surgery consult Will relay to AM provider.
[2020-12-17] MEDS ORDERED: LACTULOSE SYRUP 30 GM/45 ML UDP PO STA (07:11)
[2020-12-17] MEDS ORDERED: HYDROmorphone INJ 0.5 MG/0.5 ML SYR IV PRN (07:15)
[2020-12-17 07:33] LABS: Basophils # (auto) 0.01 K/uL (0-0.2); Basophils % (auto) 0.1 %; Eosinophils # (auto) 0.04 K/uL (0-0.5); Eosinophils % (auto) 0.4 %; Hematocrit (blood only) 32.8 % (37-47); Hemoglobin 11.4 g/dL (12.0-16.0); Immature Granulocytes # (auto) 0.02 K/uL (0.00-0.02); Immature Granulocytes % (auto) 0.2 %; Lymphocytes # (auto) 1.05 K/uL (1.2-3.4); Lymphocytes % (auto) 10.1 %; Mean Corpuscular Hemoglobin 30.2 pg (25-34); Mean Corpuscular Hgb Conc 34.8 g/dL (32-36); Mean Platelet Volume 9.1 fL (7.4-10.4); Monocytes % (auto) 4.8 %; Neutrophils % (auto) 84.4 %; Platelet Count 187 K/uL (130-400); RDW Coefficient of Variation 13.2 % (11.5-14.5); RDW Standard Deviation 42.6 fL (36.4-46.3); Red Blood Count 3.77 M/uL (4.2-5.4); White Blood Count 10.42 K/uL (4.8-10.8)
[2020-12-17] MEDS: DOCUSATE SODIUM/SENNA 50/8.6MG TAB PO SCH ×2 (07:49→21:27)
[2020-12-17] MEDS: POTASSIUM CHLORIDE 40 MEQ in SODIUM CHLORIDE 0.9% 1000ML 1,000 ML IV SCH (07:49)
[2020-12-17 08:10] LABS: Albumin Level 3.2 gm/dl (3.4-5.0); BUN Creatinine Ratio 10.6 (10-20); Calcium 8.7 mg/dl (8.5-10.1); Creatinine Clr Calc Pharmacy 51.1 ml/min; Est GFR (African American) 87.4; Est GFR (Non-African American) 75.4; Magnesium 1.7 mg/dl (1.8-2.4); Potassium 3.6 mmol/L (3.5-5.1)
[2020-12-17 08:13] LABS: Bilirubin,Total 0.6 mg/dl (0.2-1); Globulin 3.1 gm/dl (2.5-4.0); Total Protein 6.3 gm/dl (6.4-8.2)
[2020-12-17] MEDS: INSULIN ASPART 100 UNITS/ML 3 ML PEN SC SCH ×4 (08:49→21:32)
[2020-12-17] MEDS: LOSARTAN POTASSIUM 25 MG TAB PO SCH (08:52)
[2020-12-17] MEDS: CEROVITE ADV FORMULA TAB PO SCH (08:52)
[2020-12-17] MEDS: PANTOprazole 40 MG TAB PO SCH (08:52)
[2020-12-17] MEDS: dexAMETHasone 6 MG in SYRINGE 0 ML IV SCH (08:53)
[2020-12-17] MEDS: ASPIRIN 81 MG ECTAB PO SCH (08:53)
--- NOTE | 2020-12-17 09:45 | CT Scan Report ---
CT SCAN OF THE ABDOMEN AND PELVIS WITH IV CONTRAST CLINICAL HISTORY: Generalized abdominal pain. COMPARISON STUDY: No priors. TECHNIQUE: Following the IV administration of 94 cc of Optiray 320, CT scan of the abdomen and pelvi s is performed from the lung bases to the proximal femora. Images are reviewed in the axial, sagittal , and coronal planes. IV contrast was administered without complication. A dose lowering technique wa s utilized adhering to the principles of ALARA. CT DOSE: 311.67 mGy.cm FINDINGS: Lung bases: The heart is normal in size and without pericardial effusion. The coronary arteries and m itral annulus are calcified. There is no airspace consolidation or pleural effusion. Dependent atelec tasis is noted at both lung bases. There are scattered calcified granulomas. A 7 mm nodule in the lef t lower lobe is seen on image #13. 2 pleural-based nodules in the left lower lobe are seen on images #42 and #49, measuring up to 5 mm. Liver: The contrast-enhanced liver is normal in size and attenuation. The liver demonstrates diffusel y diminished attenuation consistent with hepatic steatosis. More focal fatty infiltration is seen adj acent to falciform ligament. There is no intrahepatic biliary ductal dilatation. The hepatic veins an d portal veins are patent. Gallbladder: Surgically absent noting clips in the gallbladder fossa. Spleen: Normal in size and attenuation. Pancreas: Mildly atrophic and grossly unremarkable. Adrenal glands: Unremarkable. Kidneys: The contrast enhanced kidneys demonstrate mild cortical atrophy and are without hydronephros is. The kidneys enhance symmetrically. Abdominal vasculature: There is advanced atherosclerotic calcification mild ectasia of the abdominal aorta. Bowel: There is moderate colonic diverticulosis without CT evidence of acute diverticulitis. The righ t colon is mildly distended and contains liquid stool. No colonic transition point is identified, and the left colon is relatively decompressed. The small bowel loops are normal in caliber. There is no colonic wall thickening or pericolonic inflammation. The appendix is not identified and reported reginald gically absent. Peritoneum: There is no intraperitoneal free air or abdominal ascites. Lymphadenopathy: None. Pelvic viscera: The bladder is mildly distended, with gas present within the bladder lumen. There are small calcified uterine fibroids. No adnexal lesion is seen. Trace free fluid is seen in the pelvis Skeletal structures: The skeletal structures are osteopenic. There is lumbosacral spondylosis with po stoperative change from laminectomy and posterior fusion at L4-S1. No lytic or blastic lesions are se en. IMPRESSION: 1. The right colon is mildly distended and filled with liquid stool. Correlate clinically for evidenc e of a diarrheal illness. 2. There is no colonic wall thickening or pericolonic inflammation. 3. No bowel obstruction is identified. 4. Trace free fluid in the pelvis is nonspecific and likely reactive. 5. There is gas within the bladder lumen, which may be related to instrumentation. Correlate with cli nical findings and urinalysis. 6. Hepatic steatosis. 7. There is a 7 mm irregular pulmonary nodule at the left lung base. This is pathologically indetermi nant, and a 3 month follow-up chest CT is recommended for dedicated assessment of the thorax. 8. Colonic diverticulosis without CT evidence of acute diverticulitis. 9. Additional findings as above. ACT 112: Negative or not required by law. Electronically signed by: Bin Thomas M.D. 12/17/2020 9:43 AM
[2020-12-17] MEDS: MAGNESIUM SULFATE / D5W 1 GM/100 ML BAG IV SCH ×2 (10:09→12:08)
--- NOTE | 2020-12-17 10:50 | Orthopedic Progress Note ---
Date of Service December 17, 2020 Assessment & Plan (1) Neurogenic claudication due to lumbar spinal stenosis: Admission and Anticipated Discharge Date Admission Date: December 15, 2020 At this time she may be developing a postop ileus. I encouraged her to ambulate as tolerated. She is on ice chips only at this time. We will advance her bowel regiment. Subjective Patient's major complaints at this time are loss of appetite and some GI upset. She does states she has positive flatus. Her back pain is controlled leg symptoms are improved. She is not had a bowel movement since admission. Physical Exam Physical Exam: On exam her abdomen is soft. She has good strength testing lower extremities. Results & Data ([facility]) Vital Signs (Past 12 Hours) Vital Signs Temp Pulse Resp BP Pulse Ox 12/17/20 07:41 36.4 C L 82 18 158/73 H 91 12/16/20 22:29 36.6 C 86 18 146/65 H 92
[2020-12-17] MEDS ORDERED: bisacodyL 10 MG SUPP PR PRN (11:50)
[2020-12-17] MEDS ORDERED: Nursing to Pharmacy Communication SCH ×2 (13:15→17:00)
--- NOTE | 2020-12-17 15:01 | Hospitalist Progress Note ---
Date of Service December 17, 2020 Assessment & Plan (1) Status post lumbar surgery: Post op day# 2 S/P Removal hardware L5-S1, decompression & fusion L3-L5 by Dr Moralez EBL#100ml -pain management per ortho -wound management per ortho -PT/OT as appropriate -DVT prophylaxis per ortho -incentive spirometry -monitor H&H for acute blood loss anemia; pre-op Hgb: 14 (2) Bloating: Initial concern for postoperative ileus, she was placed on bowel rest. Surgeon reports CT scan did not confirm bowel obstruction and surgeon feels this is doubtful at this time. Full liquids started. (3) Hypertension: At goal, continue losartan per home regimen. (4) Chronic kidney disease: Baseline Cr ~0.9 -Monitor renal functions, avoid nephrotoxic agents when possible (5) Hypothyroidism: H/O Hyperthyroidism s/p radiation, Continue levothyroxine per home regimen. (6) DMII (diabetes mellitus, type 2): Hemoglobin A1c 6.6 on 10/23/2020 as outpatient. This technically classifies her as diabetic. She is a diet-controlled diabetic and is currently on a type 2 diabetes diet in the hospital. Blood sugar levels have been within range and she has not needed any insulin coverage during this hospitalization. Continue to monitor blood sugar levels to ensure good wound healing and euglycemia. (7) DVT prophylaxis: SCD/ambulation per orthopedics Full code Disposition-to home when okay per Ortho Thank you for this consultation. Emelyn Mcclellan DO [facility] Hospitalist Admission and Anticipated Discharge Date Admission Date: December 15, 2020 Subjective Postop day 2 status post removal of hardware L5-S1 and decompression fusion L3- L5 by Dr. Moralez. She has developed some abdominal distention and bloating overnight and a CT scan suggested a possible large bowel obstruction. She has been placed on bowel rest. She reports some small bowel movements since this time and distention in her abdomen as well as her nausea has improved but not completely resolved. General surgery had not seen her yet at this point but later saw her and recommended full liquids. She is otherwise doing well with pain well managed from a surgical perspective. Review of Systems Review of Systems: All systems reviewed & are unremarkable except as noted in Subjective Physical Exam Physical Exam: CONSTITUTIONAL: WNWD, vitals as above, generally well- appearing EYES: normal conjunctivae, no scleral icterus ENT: external ear and nose normal RESPIRATORY: clear to auscultation bilaterally, no crackles, rales or wheezes, normal respiratory effort CARDIOVASCULAR: regular rate and rhythm, S1 and 2 heard without murmurs, gallops or rubs, no JVD, no peripheral edema GASTROINTESTINAL: soft, nontender, nondistended, no guarding MUSCULOSKELETAL: strength 5/5 throughout, head is normocephalic and atraumatic SKIN: warm and dry NEUROLOGIC: CN 2-12 grossly intact, no gross focal deficits. PSYCHIATRIC: alert cooperative and oriented to person, place and time. Results & Data Results & Data ([facility]) Vital Signs (Past 12 Hours) Vital Signs Temp Pulse Resp BP Pulse Ox 12/17/20 07:41 36.4 C L 82 18 158/73 H 91 Laboratory Results Short CBC 12/17/20 Range/Units 07:18 WBC 10.42 (4.8-10.8) K/uL Hgb 11.4 L (12.0-16.0) g/dL Hct 32.8 L (37-47) % Plt Count 187 (130-400) K/uL BMP 12/17/20 07:18 Sodium 131 L Potassium 3.6 Chloride 97 L Carbon Dioxide 27 BUN 8 Creatinine 0.74 Glucose 133 H Calcium 8.7 Liver Function 12/17/20 Range/Units 07:18 Total Bilirubin 0.6 (0.2-1) mg/dl AST 13 L (15-37) U/L ALT 18 (12-78) U/L Alkaline Phosphatase 62 (45-117) U/L Albumin 3.2 L (3.4-5.0) gm/dl Medications Administered Current Inpatient Medications Acetaminophen (Acetaminophen 500 Mg Tab) 1,000 mg PO Q8H PRN PRN Reason: MILD Pain Scale 1,2,3 & Pre PT Stop: 01/14/21 13:10 Al Hydrox/Mg Hydrox/Simethicone (Aluminum/Magnesium Susp 30 Ml Udc) 30 ml PO Q6H PRN PRN Reason: Dyspepsia Stop: 01/14/21 13:10 Aspirin (Aspirin 81 Mg Ectab) 81 mg PO QAM [facility] Stop: 01/15/21 08:59 Last Admin: 12/17/20 08:53 Dose: 81 mg Documented by: Atorvastatin Calcium (Atorvastatin 20 Mg Tab) 20 mg PO QPM [facility] Stop: 01/14/21 20:59 Last Admin: 12/16/20 20:34 Dose: 20 mg Documented by: Bisacodyl (Bisacodyl 10 Mg Supp) 10 mg NJ DAILY PRN PRN Reason: Constipation Stop: 01/16/21 11:49 Dextrose (Dextrose 50% 50 Ml Syringe) 25 - 50 ml IV UD PRN; Protocol PRN Reason: Hypoglycemia Protocol Stop: 01/14/21 14:21 Diphenhydramine HCl (Diphenhydramine Capsule 25 Mg Cap) 25 mg PO Q6H PRN PRN Reason: Allergic Rhinitis/Insomnia Stop: 01/14/21 13:10 Famotidine (Famotidine 20 Mg Tab) 20 mg PO Q12H PRN PRN Reason: Dyspepsia Stop: 01/14/21 13:10 Glucagon (Glucagon For Inj 1 Mg Vial) 1 mg SQ UD PRN; Protocol PRN Reason: Hypoglycemia Protocol Stop: 01/14/21 14:21 Glucose (Glucose 10 Tabs/Tube) 4 - 8 tabs PO UD PRN; Protocol PRN Reason: Hypoglycemia Protocol Stop: 01/14/21 14:21 Glucose (Glucose 40% Gel 15 Gm Tube) 15 - 30 gm PO UD PRN; Protocol PRN Reason: Hypoglycemia Protocol Stop: 01/14/21 14:21 Hydromorphone HCl (Hydromorphone Inj 0.5 Mg/0.5 Ml Syr) 0.25 mg IV Q6H PRN PRN Reason: Pain Stop: 12/31/20 07:14 Hydroxyzine HCl (Hydroxyzine Hcl 25 Mg Tab) 25 mg PO Q8H PRN PRN Reason: Anxiety Stop: 01/14/21 13:10 Acetaminophen (Ofirmev) 1,000 mg in 100 mls @ 400 mls/hr IV Q8H PRN PRN Reason: Pain Rating 1-3 & Pre PT Stop: 12/18/20 13:10 Promethazine HCl 12.5 mg/ (Sodium Chloride) 50.5 mls @ 202 mls/hr IV Q6H PRN PRN Reason: Nausea &/or Vomiting Stop: 01/14/21 13:10 Lorazepam (Ativan) 0.5 mg in 1 mls @ 1 mls/min IV Q8H PRN PRN Reason: Sedation/Anxiety Stop: 01/14/21 13:10 Dexamethasone Sodium Phosphate (6 mg/ Syringe) 1.5 mls @ 1 mls/min IV DAILY [facility] Stop: 01/16/21 08:59 Last Admin: 12/17/20 08:53 Dose: 1 mls/min Documented by: Potassium Chloride 40 meq/ (Sodium Chloride) 1,020 mls @ 50 mls/hr IV .[id number] [facility] Stop: 01/16/21 07:14 Last Admin: 12/17/20 07:49 Dose: 50 mls/hr Documented by: Influenza Virus Vaccine Quadrival (Do Not Administer Flu Vaccine) 1 ea N/A PRN PRN PRN Reason: Notification Stop: 01/14/21 13:10 Insulin Aspart (Insulin Aspart 100 Units/Ml 3 Ml Pen) 0 units SC Q6 [facility] Stop: 01/16/21 17:59 Latanoprost (Latanoprost 0.005% Op Soln 2.5 Ml Btl) 1 drops OP HS [facility] Stop: 01/14/21 20:59 Last Admin: 12/16/20 20:37 Dose: 1 drops Documented by: Levothyroxine Sodium (Levothyroxine Sodium 88 Mcg Tablet) 88 mcg PO DAILYBB [facility] Stop: 01/15/21 06:29 Last Admin: 12/17/20 05:48 Dose: 88 mcg Documented by: Lorazepam (Lorazepam 0.5 Mg Tab) 0.5 mg PO Q8H PRN PRN Reason: sedation/anxiety Stop: 01/14/21 13:10 Losartan Potassium (Losartan Potassium 25 Mg Tab) 25 mg PO QAM [facility] Stop: 01/15/21 08:59 Last Admin: 12/17/20 08:52 Dose: 25 mg Documented by: Magnesium Hydroxide (Magnesium Hydroxide Susp 30 Ml Udc) 30 ml PO Q24H PRN PRN Reason: Constipation Stop: 01/14/21 13:10 Menthol (Cough Drop (Sugar Free) Caro 24 Caro/1 Box) 1 caro BUCCAL Q2H PRN PRN Reason: Sore Throat Stop: 01/14/21 16:40 Metoclopramide HCl (Metoclopramide Hcl Inj 5 Mg/Ml 2 Ml Vial) 10 mg IV Q6H PRN PRN Reason: Nausea &/or Vomiting Stop: 01/14/21 13:10 Miscellaneous (Carbohydrates For Hypoglycemia ) 15 - 30 gm PO UD PRN PRN Reason: Hypoglycemia Protocol Stop: 01/14/21 14:21 Multivitamins/Minerals (Cerovite Adv Formula Tab) 1 tab PO DAILY [facility]; Protocol Stop: 01/15/21 08:59 Last Admin: 12/17/20 08:52 Dose: 1 tab Documented by: Naloxone HCl (Naloxone Hcl 0.4 Mg/1 Ml Vial/Carp) 0.1 mg IV Q5M PRN PRN Reason: Oversedation/respiratory dep Stop: 01/14/21 13:10 Ondansetron HCl (Ondansetron Inj 2 Mg/Ml 2 Ml Vial) 4 mg IV Q6H PRN PRN Reason: Nausea &/or Vomiting Stop: 01/14/21 13:10 Ondansetron HCl (Ondansetron 4 Mg Od Tab) 4 mg PO Q6H PRN PRN Reason: Nausea Stop: 01/14/21 13:10 Last Admin: 12/17/20 05:22 Dose: 4 mg Documented by: Pantoprazole Sodium (Pantoprazole 40 Mg Tab) 40 mg PO QAM [facility]; Protocol Stop: 01/15/21 08:59 Last Admin: 12/17/20 08:52 Dose: 40 mg Documented by: Pneumococcal Polyvalent Vaccine (Do Not Administer Pneumococcal Vaccine) 1 ea N/A PRN PRN PRN Reason: Notification Stop: 01/14/21 13:10 Polyethylene Glycol (Polyethylene (Miralax) 17 Gm Pack) 17 gm PO Q6 [facility] Stop: 01/15/21 05:59 Last Admin: 12/17/20 12:35 Dose: 17 gm Documented by: Senna/Docusate Sodium (Docusate Sodium/Senna 50/8.6mg Tab) 2 tab PO BID [facility] Stop: 01/16/21 07:14 Last Admin: 12/17/20 07:49 Dose: 2 tab Documented by: Sodium Biphosphate/Sodium Phosphate (Sod Phosphate/Sod Biphosphate Enema 132 Ml Btl) 132 ml NJ ONE PRN PRN Reason: Constipation Stop: 01/14/21 13:10 Tramadol HCl (Tramadol Hcl 50 Mg Tablet) 50 - 100 mg PO Q4H PRN PRN Reason: Moderate-Severe pain & Pre PT Stop: 01/14/21 13:10 Last Admin: 12/16/20 17:14 Dose: 100 mg Documented by: Vitamin D (Cholecalciferol 1,000 Units 25 Mcg Tab) 1,000 units PO QPM [facility] Stop: 01/14/21 20:59 Last Admin: 12/16/20 20:35 Dose: 1,000 units Documented by:
--- NOTE | 2020-12-17 15:33 | Surgery Consultation ---
Date of Consultation December 17, 2020 Assessment & Plan (1) Constipation: The patient had lumbar back surgery. She then became constipated. With cathartics that is resolved. CT scan does not confirm bowel obstruction and I doubt that at this time. I do not feel that there is any need for any further surgical intervention. History of Present Illness Requesting Physician: Roger Ware MD Attending Physician: Steve Moralez, DO History of Present Illness I have been asked by Dr. Bustillo to see this 80-year-old female who underwent lumbar spine surgery 2 days ago. She had not been eating. She stated that she developed issues with moving her bowels after her last back surgery. She had not been passing her bowels and was felt to be constipated. Her abdomen was distended. She was having mild to moderate abdominal discomfort. She had some nausea but did not vomit. She has never had previous abdominal surgery. She was given oral cathartics and since that time has had 4-5 loose bowel movements. Her abdominal distention is much improved and her pain is resolved. She has no further nausea. Allergies Allergy/AdvReac Type Severity Reaction Status Date / Time amoxicillin Allergy Unknown Hives Verified 12/15/20 09:19 oxycodone [From Percocet] Allergy Unknown Hives Verified 12/15/20 09:19 Home Medications Medication Instructions Recorded Confirmed Type acetaminophen [Tylenol] 650 mg PO BID PRN 11/15/20 12/15/20 History aspirin [Aspir-81] 81 mg PO QAM 11/15/20 12/15/20 History atorvastatin 20 mg PO QPM 11/15/20 12/15/20 History cholecalciferol (vitamin D3) 10 mcg PO QPM 11/15/20 12/15/20 History [Vitamin D3] hydrocodone-acetaminophen 1 tab PO Q8H PRN 11/15/20 12/15/20 History latanoprost (PF) 1 drp OPHTHALMIC (EYE) HS 11/15/20 12/15/20 History losartan 25 mg PO QAM 11/15/20 12/15/20 History omeprazole 40 mg PO QAM 11/15/20 12/15/20 History vitamins A,C,[id number]-[id number] 1 cap PO BID 11/15/20 12/15/20 History [PreserVision AREDS] levothyroxine 88 mcg PO QAM 12/15/20 12/15/20 History hydrocodone-acetaminophen 1 tab PO Q6H PRN #30 tab 12/16/20 Rx Patient History Medical History (Updated 12/17/20 @ 15:32 by Bola Mckinney MD) Aortic stenosis Mild aortic stenosis (TRUDY 1.1cm2, MG 12-13.4mmhg) per 11/2019 echo Chronic back pain Chronic kidney disease Stage III, under surveillance by PCP Chronic obstructive pulmonary disease GERD (gastroesophageal reflux disease) Glaucoma Hiatal hernia Hyperlipidemia Hypertension Hypothyroidism Hyperactivity 20 years ago > hypothyroidism s/p radiation Macular degeneration "One eye" Osteoarthritis Prediabetes diet controlled, PCP monitoring Surgical History (Updated 12/15/20 @ 14:15 by Jessica Marquez PA-C) Fusion of spine L5-S1 decompression/fusion: 09/09/12: Atraumatic intubation, ETT 7.0 at [facility] History of adenoidectomy History of appendectomy History of cholecystectomy History of colonoscopy History of esophagogastroduodenoscopy (EGD) History of tonsillectomy Family History Sister Family history of diabetes mellitus Sister Family history of diabetes mellitus Mother Family history of diabetes mellitus Brother Family history of diabetes mellitus Social History Smoking Status: Current every day smoker Cigarettes Per Day: 1 PDD (previously heavier use at 2 PPD); Second Hand Exposure: No; Do You Dip or Chew Tobacco: No; Hx Alcohol Use: No Hx Substance Use: No Preferred Language: Sami Communication Ability: Effective Mass Spectrometry Specialist Required: No Beliefs That Will Affect Care: None marital status: Single Current Living Situation: Alone Other Information That Helps Us Care for You: No Feels Safe at Home: Yes Safety Concerns: Feels Safe At This Time Assistive Devices: Denture - Upper, Denture - Lower, Glasses and Walker Assistive Devices Comment: CANE PRN Review of Systems Review of Systems: All systems reviewed & are unremarkable except as noted in HPI & below Physical Exam Constitutional: no acute distress Respiratory: normal respiratory effort Cardiovascular: Rate/Rhythm: regular rate and regular rhythm Gastrointestinal (Abdomen): Inspection/Auscultation: + abdomen distended (Mild) and normal bowel sounds Percussion/Palpation: abdomen soft; abdomen nontender Skin: no rashes, warm and dry Lymphatic: no cervical lymphadenopathy Results & Data ([facility]) Vital Signs (Past 12 Hours) Vital Signs Temp Pulse Resp BP Pulse Ox 12/17/20 07:41 36.4 C L 82 18 158/73 H 91 Laboratory Results 12/17/20 12/17/20 12/17/20 Range/Units 12:21 07:56 07:18 WBC (4.8-10.8) K/uL RBC (4.2-5.4) M/uL Hgb (12.0-16.0) g/dL Hct (37-47) % MCV (80-100) fL MCH (25-34) pg MCHC (32-36) g/dL RDW Std Deviation (36.4-46.3) fL RDW Coeff of Jenna (11.5-14.5) % Plt Count (130-400) K/uL MPV (7.4-10.4) fL Immature Gran % (Auto) % Neut % (Auto) % Lymph % (Auto) % [place] % (Auto) % Eos % (Auto) % Baso % (Auto) % Neut # (Auto) (1.4-6.5) K/uL Lymph # (Auto) (1.2-3.4) K/uL [place] # (Auto) (0.11-0.59) K/uL Eos # (Auto) (0-0.5) K/uL Baso # (Auto) (0-0.2) K/uL Immature Gran # (Auto) (0.00-0.02) K/uL Sodium 131 L (136-145) mmol/L Potassium 3.6 (3.5-5.1) mmol/L Chloride 97 L (98-107) mmol/L Carbon Dioxide 27 (21-32) mmol/L Anion Gap 7.0 (3-11) BUN 8 (7-18) mg/dl Creatinine 0.74 (0.6-1.2) mg/dl Est Cr Clr Drug Dosing 51.1 ml/min Est GFR ( Amer) 87.4 Est GFR (Non-Af Amer) 75.4 BUN/Creatinine Ratio 10.6 (10-20) Glucose 133 H (70-99) mg/dl POC Glucose 175 H 147 H (70-99) mg/dl Calcium 8.7 (8.5-10.1) mg/dl Magnesium 1.7 L (1.8-2.4) mg/dl Total Bilirubin 0.6 (0.2-1) mg/dl AST 13 L (15-37) U/L ALT 18 (12-78) U/L Alkaline Phosphatase 62 (45-117) U/L Total Protein 6.3 L (6.4-8.2) gm/dl Albumin 3.2 L (3.4-5.0) gm/dl Globulin 3.1 (2.5-4.0) gm/dl Albumin/Globulin Ratio 1.0 (0.9-2) Lipase 51 L (73-393) U/L 12/17/20 12/16/20 12/16/20 Range/Units 07:18 20:32 17:06 WBC 10.42 (4.8-10.8) K/uL RBC 3.77 L (4.2-5.4) M/uL Hgb 11.4 L (12.0-16.0) g/dL Hct 32.8 L (37-47) % MCV 87.0 (80-100) fL MCH 30.2 (25-34) pg MCHC 34.8 (32-36) g/dL RDW Std Deviation 42.6 (36.4-46.3) fL RDW Coeff of Jenna 13.2 (11.5-14.5) % Plt Count 187 (130-400) K/uL MPV 9.1 (7.4-10.4) fL Immature Gran % (Auto) 0.2 % Neut % (Auto) 84.4 % Lymph % (Auto) 10.1 % [place] % (Auto) 4.8 % Eos % (Auto) 0.4 % Baso % (Auto) 0.1 % Neut # (Auto) 8.80 H (1.4-6.5) K/uL Lymph # (Auto) 1.05 L (1.2-3.4) K/uL [place] # (Auto) 0.50 (0.11-0.59) K/uL Eos # (Auto) 0.04 (0-0.5) K/uL Baso # (Auto) 0.01 (0-0.2) K/uL Immature Gran # (Auto) 0.02 (0.00-0.02) K/uL Sodium (136-145) mmol/L Potassium (3.5-5.1) mmol/L Chloride (98-107) mmol/L Carbon Dioxide (21-32) mmol/L Anion Gap (3-11) BUN (7-18) mg/dl Creatinine (0.6-1.2) mg/dl Est Cr Clr Drug Dosing ml/min Est GFR ( Amer) Est GFR (Non-Af Amer) BUN/Creatinine Ratio (10-20) Glucose (70-99) mg/dl POC Glucose 171 H 145 H (70-99) mg/dl Calcium (8.5-10.1) mg/dl Magnesium (1.8-2.4) mg/dl Total Bilirubin (0.2-1) mg/dl AST (15-37) U/L ALT (12-78) U/L Alkaline Phosphatase (45-117) U/L Total Protein (6.4-8.2) gm/dl Albumin (3.4-5.0) gm/dl Globulin (2.5-4.0) gm/dl Albumin/Globulin Ratio (0.9-2) Lipase (73-393) U/L Diagnostic Findings CT SCAN OF THE ABDOMEN AND PELVIS WITH IV CONTRAST CLINICAL HISTORY: Generalized abdominal pain. COMPARISON STUDY: No priors. TECHNIQUE: Following the IV administration of 94 cc of Optiray 320, CT scan of the abdomen and pelvis is performed from the lung bases to the proximal femora. Images are reviewed in the axial, sagittal, and coronal planes. IV contrast was administered without complication. A dose lowering technique was utilized adhering to the principles of ALARA. CT DOSE: 311.67 mGy.cm FINDINGS: Lung bases: The heart is normal in size and without pericardial effusion. The coronary arteries and mitral annulus are calcified. There is no airspace consolidation or pleural effusion. Dependent atelectasis is noted at both lung bases. There are scattered calcified granulomas. A 7 mm nodule in the left lower lobe is seen on image #13. 2 pleural-based nodules in the left lower lobe are seen on images #42 and #49, measuring up to 5 mm. Liver: The contrast-enhanced liver is normal in size and attenuation. The liver demonstrates diffusely diminished attenuation consistent with hepatic steatosis. More focal fatty infiltration is seen adjacent to falciform ligament. There is no intrahepatic biliary ductal dilatation. The hepatic veins and portal veins are patent. Gallbladder: Surgically absent noting clips in the gallbladder fossa. Spleen: Normal in size and attenuation. Pancreas: Mildly atrophic and grossly unremarkable. Adrenal glands: Unremarkable. Kidneys: The contrast enhanced kidneys demonstrate mild cortical atrophy and are without hydronephrosis. The kidneys enhance symmetrically. Abdominal vasculature: There is advanced atherosclerotic calcification mild ectasia of the abdominal aorta. Bowel: There is moderate colonic diverticulosis without CT evidence of acute diverticulitis. The right colon is mildly distended and contains liquid stool. No colonic transition point is identified, and the left colon is relatively decompressed. The small bowel loops are normal in caliber. There is no colonic wall thickening or pericolonic inflammation. The appendix is not identified and reported surgically absent. Peritoneum: There is no intraperitoneal free air or abdominal ascites. Lymphadenopathy: None. Pelvic viscera: The bladder is mildly distended, with gas present within the bladder lumen. There are small calcified uterine fibroids. No adnexal lesion is seen. Trace free fluid is seen in the pelvis Skeletal structures: The skeletal structures are osteopenic. There is lumbosacral spondylosis with postoperative change from laminectomy and posterior fusion at L4-S1. No lytic or blastic lesions are seen. IMPRESSION: 1. The right colon is mildly distended and filled with liquid stool. Correlate clinically for evidence of a diarrheal illness. 2. There is no colonic wall thickening or pericolonic inflammation. 3. No bowel obstruction is identified. 4. Trace free fluid in the pelvis is nonspecific and likely reactive. 5. There is gas within the bladder lumen, which may be related to instrumentation. Correlate with clinical findings and urinalysis. 6. Hepatic steatosis. 7. There is a 7 mm irregular pulmonary nodule at the left lung base. This is pathologically indeterminant, and a 3 month follow-up chest CT is recommended for dedicated assessment of the thorax. 8. Colonic diverticulosis without CT evidence of acute diverticulitis. 9. Additional findings as above.
[2020-12-17] MEDS ORDERED: INSULIN ASPART 100 UNITS/ML 3 ML PEN SC SCH (18:00)
[2020-12-17] MEDS: ATORVASTATIN 20 MG TAB PO SCH (21:27)
[2020-12-17] MEDS: CHOLECALCIFEROL 1,000 UNITS 25 MCG TAB PO SCH (21:27)
[2020-12-17] MEDS: LATANOPROST 0.005% OP SOLN 2.5 ML BTL OP SCH (21:28)
[2020-12-18] MEDS: POTASSIUM CHLORIDE 40 MEQ in SODIUM CHLORIDE 0.9% 1000ML 1,000 ML IV SCH (03:22)
[2020-12-18] MEDS: LEVOTHYROXINE SODIUM 88 MCG TABLET PO SCH (05:40)
[2020-12-18] MEDS: DOCUSATE SODIUM/SENNA 50/8.6MG TAB PO SCH (05:40)
[2020-12-18] MEDS: traMADol HCL 50 MG TABLET PO PRN (05:43)
[2020-12-18 05:51] LABS: Hematocrit (blood only) 31.2 % (37-47); Hemoglobin 10.8 g/dL (12.0-16.0); Mean Corpuscular Hemoglobin 30.3 pg (25-34); Mean Corpuscular Hgb Conc 34.6 g/dL (32-36); Mean Corpuscular Volume 87.6 fL (80-100); Mean Platelet Volume 9.1 fL (7.4-10.4); Platelet Count 202 K/uL (130-400); RDW Coefficient of Variation 13.3 % (11.5-14.5); Red Blood Count 3.56 M/uL (4.2-5.4); White Blood Count 9.67 K/uL (4.8-10.8)
[2020-12-18 06:35] LABS: BUN Creatinine Ratio 11.1 (10-20); Calcium 8.3 mg/dl (8.5-10.1); Creatinine Clr Calc Pharmacy 54.1 ml/min; Est GFR (African American) 93.5; Est GFR (Non-African American) 80.7; Potassium 3.8 mmol/L (3.5-5.1)
[2020-12-18] MEDS: CEROVITE ADV FORMULA TAB PO SCH (08:57)
[2020-12-18] MEDS: dexAMETHasone 6 MG in SYRINGE 0 ML IV SCH (08:57)
[2020-12-18] MEDS: PANTOprazole 40 MG TAB PO SCH (08:58)
[2020-12-18] MEDS: LOSARTAN POTASSIUM 25 MG TAB PO SCH (08:58)
[2020-12-18] MEDS: ASPIRIN 81 MG ECTAB PO SCH (08:58)
[2020-12-18] MEDS: INSULIN ASPART 100 UNITS/ML 3 ML PEN SC SCH ×2 (09:11→12:08)
--- NOTE | 2020-12-18 10:37 | Discharge Summary ---
Date of Service December 18, 2020 Principal Diagnosis Lumbar spinal stenosis with neurogenic claudication Discharge Data Allergies Allergy/AdvReac Type Severity Reaction Status Date / Time amoxicillin Allergy Unknown Hives Verified 12/15/20 09:19 oxycodone [From Percocet] Allergy Unknown Hives Verified 12/15/20 09:19 Consultations 12/15/20 13:11 Consult Case Management - Discharge Planning Routine Consult Hospitalist Routine 12/17/20 07:13 Consult General Surgery Routine Procedures Performed Operation Date: 12/15/20 10:05 Actual Procedures p L4-L5 Decompression Fusion, Application of Bone Morphogenetic Protein, L5-S1 Hardware Removal, Spinal Cord Monitoring(Not Applicable) - Steve Moralez, Ordered Studies 12/15/20 10:05 FL fluoroscopy <1hr Routine FL lumbar spine 2-3V Routine 12/16/20 02:17 US venous doppler LE RT Urgent 12/17/20 05:03 CT abd pelvis IV con only Urgent Hospital Course (1) Neurogenic claudication due to lumbar spinal stenosis: Patient with lumbar decompression fusion tolerated so was taken to orthopedic for postoperative postop and when she was up and ambulating postop day 2 she is struggling with some constipation. Postop day #3 this is resolved she is ambulating well strength intact subsequent discharge home. Discharge orders instructions from the chart for further review. Total Time Total Time Spent Total Time Spent (In Minutes): 20 minutes Discharge Plan Discharge Items Patient Disposition: Home - Self-Care Reason For Visit: Spinal Stenosis, Lumbar Region with Neurogenic Cla Discharge Diagnosis: Lumbar spinal stenosis with neurogenic claudication Activity: As commented below Non-emergency contact: Primary Care Provider Call non-emergency contact if: you have any medication questions Follow-up/Referrals: Chandrika Gu PA-C [Primary Care Provider] - Diet: Regular Addtl Attending Provider Instructions: ACTIVITY RECOMMENDATIONS: SELF CARE INSTRUCTIONS AFTER THORACIC/LUMBAR FUSIONS 1. You may walk to your tolerance. It is good exercise for your legs and back. Expect some back and intermittent leg aches and pains. 2. You may perform "counter-top" level activities (make a sandwich, yefri with a project, etc.). 3. No bending or lifting of more than 10 pounds or back twisting of any nature (roll like a log when turning in bed). 4. You may ride in a car for 20-30 minutes at a time. No driving until after your first visit with your doctor. 5. Frequent changes of position and restricting sitting to 30 minutes at a time will help limit the amount of back spasms and stiffness you may experience. 6. You may discontinue the use of ambulatory aids (cane, crutches, etc.) once your strength and confidence allow. 7. You may field pipe lines supervisor the shower and let water strike your incision when you arrive home at least once daily. Do not take a tub bath, sit in a hot tub or go into a swimming pool until after your first recheck in the office. SPECIAL CARE INSTRUCTIONS: VERY IMPORTANT TO READ AND REVIEW A. Your surgical incision has been closed with a cosmetic suture under the skin that will dissolve in about 6 weeks. In 14 days, you can use a pair of clean scissors and cut the suture that is left outside of the skin at the ends of your incision. 1. The small skin tapes can be removed 7 days after surgery if they have not fallen off by that point. 2. You may keep the wound open to air as much as possible to promote healing after post-op day number 5 unless told otherwise by your doctor. 3. If you think the wound looks like it is becoming infected (redness or worsening drainage) and/or you are experiencing fever, chill or worsening back pain and muscle spasms, contact the office so that we may evaluate you as soon as possible. B. Complications are uncommon, but please contact us if you have any signs or symptoms of: 1. wound infection (fever higher than 102.5 degrees F, redness, separation of wound, drainage, or increasing pain from the incision) 2. blood clots in legs (pain, swelling, redness and warmth in legs) 3. urinary tract infection (fever higher than 102.5 degrees F, burning upon urination or increased frequency of urination) 4. nerve problems (inability to walk on your toes or heels, numbness, loss of bowel or bladder control) 5. any other symptoms that concern you C. Please call the office at if you have any concerns or questions about your operation or recovery. D. No smoking! Smoking drastically decreases the chance of a solid fusion. E. Do not take any anti-inflammatory medications (Indocin, Advil, Motrin, Aspirin, Naprosyn, etc.) as these may inhibit the chance of a solid fusion. Tylenol is okay to take for pain. MANAGING PAIN AFTER SPINAL SURGERY 1. Narcotic medication is intended for short-term use and will be provided for surgical pain. Surgical pain usually lasts for a period of 4-6 weeks. Narcotic medication includes Percocet, Vicodin, Darvocet, Tylenol #3 or Lortab. 2. Longer-term pain is more appropriately treated with non-narcotic medication such as Tylenol ES. 3. Muscle spasm is not appropriately treated with narcotics. Muscle relaxers such as Soma, Flexeril or Skelaxin can be used along with Tylenol ES. 4. Remember that we all live with some "aches and pains". This is not unusual or uncommon after an injury or as we get older. a. Back pain is expected and may include muscle spasms for 4 to 6 weeks after surgery. The pain should gradually improve. If the pain worsens for no apparent reason, please contact the office. b. Intermittent leg pain may also be experienced and should not be concerned about unless it worsens for no apparent reason. If so, please contact the office. 5. We will provide appropriate medication within the normal guidelines of their prescribed use. We will also be very cautious and aware of potential abuse and extended duration of patients' medication needs. a. Pain medications are for your comfort and to assist with sleep and rest so that the tissue can heal. They are not provided in order to return to normal activity and should not be used through the day. To do so or worsening pain at night can result from ongoing tissue damage and development of tolerance to the prescribed medicine. 6. Please allow 2-3 days to process refills. Prescriptions will not be mailed but must be picked up at the office. FOLLOW UP VISIT: Keep your scheduled follow-up appointment. Any questions, please call the office at . Pending Studies at Discharge: No Stand-Alone Forms: My [employer], Smoking Cessation Medications and DC Order Prescriptions: New hydrocodone-acetaminophen 5-325 mg tablet 1 tab PO Q6H PRN (Reason: pain) Qty: 30 RF: 0 Continued atorvastatin 20 mg Tablet 20 mg PO QPM RF: 0 hydrocodone-acetaminophen 10-325 mg Tablet 1 tab PO Q8H PRN (Reason: Pain) RF: 0 aspirin 81 mg Tablet,Delayed Release (Dr/Ec) 81 mg PO QAM RF: 0 losartan 25 mg Tablet 25 mg PO QAM RF: 0 acetaminophen [Tylenol] 325 mg Capsule 650 mg PO BID PRN (Reason: Pain) RF: 0 PreserVision AREDS [id number] Capsule 1 cap PO BID RF: 0 latanoprost (PF) 0.005 % Drops 1 drp OPHTHALMIC (EYE) HS RF: 0 omeprazole 40 mg Capsule,Delayed Release(Dr/Ec) 40 mg PO QAM RF: 0 cholecalciferol (vitamin D3) [Vitamin D3] 10 mcg (400 unit) Capsule 10 mcg PO QPM RF: 0 levothyroxine 88 mcg tablet 88 mcg PO QAM RF: 0 Discharge Orders: Discharge Order (Routine); Ordered 12/18/20 Ordered By: Steve Moralez Admission Data Admit Date/Time: 12/15/20 12:36 Attending Provider: Steve Moralez Admit Provider: Steve Moralez Primary Care Provider: Chandrika Gu Other Providers: Bola Mckinney ; Antonia Shay ; Doretha Flaherty ; Jayy Parish ; Emeka Cisneros ; Rosa Isela Ruiz ; Shayla Cota ; Shawn Bray Jr ; Adolfo Richard ; Joe Arias ; Frances Emerson ; Corie Resendiz
--- NOTE | 2020-12-18 14:07 | Surgery Progress Note ---
Date of Service December 18, 2020 Assessment & Plan (1) Constipation: The patient had lumbar back surgery. She then became constipated. With cathartics that is resolved. CT scan does not confirm bowel obstruction. Abdomen is soft, mildly distended. no n/v , tolerating diet Plan: No surgical intervention required. Patient is being discharged home today Dr. Mckinney has seen and examined pt, agrees with above. Admission and Anticipated Discharge Date Admission Date: December 15, 2020 Subjective feeling good today tolerated full liquids passing gas Physical Exam Constitutional: WD/WN, vitals as above Respiratory: normal respiratory effort; no respiratory distress and no labored breathing Gastrointestinal (Abdomen): Inspection/Auscultation: abdomen normal to inspection and + abdomen distended (mild) Percussion/Palpation: abdomen soft; abdomen nontender, no guarding and abdomen not rigid Skin: no rashes, warm and dry Psychiatric: A+Ox3, euthymic affect Results & Data ([facility]) Vital Signs (Past 12 Hours) Vital Signs Temp Pulse Pulse Resp BP Pulse Ox 12/18/20 13:58 36.6 C 81 77 16 120/64 93 12/18/20 07:12 36.6 C 77 16 120/64 93 Laboratory Results 12/18/20 12/18/20 12/18/20 Range/Units 11:57 07:51 05:28 WBC (4.8-10.8) K/uL RBC (4.2-5.4) M/uL Hgb (12.0-16.0) g/dL Hct (37-47) % MCV (80-100) fL MCH (25-34) pg MCHC (32-36) g/dL RDW Std Deviation (36.4-46.3) fL RDW Coeff of Jenna (11.5-14.5) % Plt Count (130-400) K/uL MPV (7.4-10.4) fL Sodium 139 D (136-145) mmol/L Potassium 3.8 (3.5-5.1) mmol/L Chloride 105 (98-107) mmol/L Carbon Dioxide 27 (21-32) mmol/L Anion Gap 7.0 (3-11) BUN 8 (7-18) mg/dl Creatinine 0.70 (0.6-1.2) mg/dl Est Cr Clr Drug Dosing 54.1 ml/min Est GFR ( Amer) 93.5 Est GFR (Non-Af Amer) 80.7 BUN/Creatinine Ratio 11.1 (10-20) Glucose 119 H (70-99) mg/dl POC Glucose 158 H 112 H (70-99) mg/dl Calcium 8.3 L (8.5-10.1) mg/dl 12/18/20 12/17/20 12/17/20 Range/Units 05:28 20:43 16:56 WBC 9.67 (4.8-10.8) K/uL RBC 3.56 L (4.2-5.4) M/uL Hgb 10.8 L (12.0-16.0) g/dL Hct 31.2 L (37-47) % MCV 87.6 (80-100) fL MCH 30.3 (25-34) pg MCHC 34.6 (32-36) g/dL RDW Std Deviation 43.0 (36.4-46.3) fL RDW Coeff of Jenna 13.3 (11.5-14.5) % Plt Count 202 (130-400) K/uL MPV 9.1 (7.4-10.4) fL Sodium (136-145) mmol/L Potassium (3.5-5.1) mmol/L Chloride (98-107) mmol/L Carbon Dioxide (21-32) mmol/L Anion Gap (3-11) BUN (7-18) mg/dl Creatinine (0.6-1.2) mg/dl Est Cr Clr Drug Dosing ml/min Est GFR ( Amer) Est GFR (Non-Af Amer) BUN/Creatinine Ratio (10-20) Glucose (70-99) mg/dl POC Glucose 156 H 161 H (70-99) mg/dl Calcium (8.5-10.1) mg/dl
--- NOTE | 2020-12-27 12:10 | Coding Query ---
Your help is needed for correct coding of this account; please clarify if the patients Post-operative complication was: (x ) expected out of the surgery ( ) unexpected complication from the surgery ( ) other please specify Thank you Bethany STEVEN
== END 2020-12-18 14:40 | disposition home or self-care (01) | DRG 455 ==
LOC: ASU 08:28 → 3E 12:36